=== PATIENT | male | born 1945 | race Asian ===

== ENCOUNTER 2019-03-05 01:32 | Inpatient (IN) | payer MEDICARE ==
[~2019-03-05] VITALS: Ht 162.6 cm; Wt 77.9 kg
[~2019-03-05 01:32] MED LIST: AMLO10TA8 PO; BENA40TA55 PO; EZET10TA18 PO
--- NOTE | 2019-03-05 01:52 | NUR ---
FIRST CONTACT WITH PT. PT HERE FOR ABD PAIN THAT IS CENTRALLY LOCATED. PT DENIES FEVER,NAUSEA AND VOMITING. PAIN STARTED AT 1900 PAIN IS SHARP AND 8/10. PT HAS HX OF BOWEL OBSTRUCTION. BP/SPO2 MONITORS IN PLACE. CALL LIGHT WITHIN REACH. PA AT BEDSIDE TO EVALUATE AT THIS TIME.
[2019-03-05] MEDS ORDERED: ONDANSETRON 2MG/ML, 2ML IVPush ONE (02:00)
[2019-03-05] MEDS ORDERED: SODIUM CHLORIDE FLUSH 10ML SYR IVF ONE (02:00)
[2019-03-05] MEDS ORDERED: ONDANSETRON 2MG/ML, 2ML ONE (02:16)
[2019-03-05] MEDS ORDERED: MORPHINE SULFATE 4 MG/ML, 1ML ONE ×2 (02:16→04:35)
[2019-03-05] MEDS: MORPHINE SULFATE 4 MG/ML, 1ML IVPush PRN ×2 (02:18→04:36)
--- NOTE | 2019-03-05 02:22 | NUR ---
PT MEDICATED PER EMAR. PT TOLERATED WELL.
[2019-03-05 02:23] LABS: BASOPHILS # (AUTO) 0.01 x10^3/uL (0-0.1); BASOPHILS % (AUTO) 0 % (0-1); EOSINOPHILS # (AUTO) 0.37 x10^3/uL (0-0.4); EOSINOPHILS % (AUTO) 2 % (1-7); LYMPHOCYTES # (AUTO) 1.42 x10^3/uL (1-3.4); LYMPHOCYTES % (AUTO) 9 % (22-44); MD NO; MEAN CORPUSCULAR HEMOGLOBIN 30.4 pg (27.5-34.5); MEAN CORPUSCULAR HGB CONC 33.1 g/dL (33.2-36.2); MEAN CORPUSCULAR VOLUME 91.8 fL (81-97); MEAN PLATELET VOLUME 8.2 fL (7.4-10.4); MONOCYTES # (AUTO) 0.59 x10^3/uL (0.2-0.8); MONOCYTES % (AUTO) 4 % (2-9); NEUTROPHILS # (AUTO) 13.93 x10^3/uL (1.8-6.8); NEUTROPHILS % (AUTO) 85 % (42-75); PLATELET COUNT 291 x10^3/uL (130-400); RED BLOOD COUNT 5.35 x10^6/uL (4.38-5.82); RED CELL DISTRIBUTION WIDTH 13.8 % (9.4-14.8)
[2019-03-05 02:32] LABS: ALANINE AMINOTRANSFERASE 55 U/L (12-78); ALBUMIN 4.4 g/dL (3.4-5.0); ANION GAP 9 mmol/L (5-15); CALCIUM 9.7 mg/dL (8.5-10.1); CHLORIDE 104 mmol/L (98-107); CREATININE 1.42 mg/dL (0.7-1.3)
[2019-03-05 02:34] LABS: ALKALINE PHOSPHATASE 86 U/L (45-117); BILIRUBIN,TOTAL 0.5 mg/dL (0.2-1.0); TOTAL PROTEIN 8.4 g/dL (6.4-8.2)
--- NOTE | 2019-03-05 03:04 | NUR ---
PT TO CT NOW.
--- NOTE | 2019-03-05 03:07 | NUR ---
PT'S DAUGHTER NUMBER [phone]
[2019-03-05] MEDS ORDERED: OMNIPAQUE 350 MG/ML, 100ML BOTTLE ONE (03:11)
--- NOTE | 2019-03-05 03:17 | NUR ---
PT IS NOT ABLE TO PROVIDE URINE SAMPLE AT THIS TIME. PA NOTIFIED.
[2019-03-05] MEDS ORDERED: METF500T17 PO (03:50)
[2019-03-05] MEDS ORDERED: IBUP-1222 PO (03:50)
[2019-03-05] MEDS ORDERED: ATOR20TA37 PO (03:51)
[2019-03-05] MEDS ORDERED: ALLO300T PO (03:51)
--- NOTE | 2019-03-05 03:58 | NUR ---
PT IS NOT ABLE TO PROVIDE URINE SAMPLE STILL. URINAL AT BEDSIDE. PA NOTIFIED.
[2019-03-05] MEDS ORDERED: MORPHINE SULFATE 4 MG/ML, 1ML IVPush PRN (04:00)
[2019-03-05] MEDS ORDERED: ONDANSETRON 2MG/ML, 2ML IVPush PRN (04:00)
[2019-03-05] MEDS ORDERED: triamcinolon SUBD (04:17)
[2019-03-05] MEDS ORDERED: DOCUSATE 100 MG CAPSULE PO PRN (04:30)
[2019-03-05] MEDS ORDERED: ONDANSETRON ODT 4 MG PO PRN (04:30)
[2019-03-05] MEDS ORDERED: ACETAMINOPHEN 325 MG TABLET PO PRN (04:30)
--- NOTE | 2019-03-05 04:30 | NUR ---
REPORT GIVEN TO AGUILAR DREW. ALL QUESTIONS ANSWERED.
--- NOTE | 2019-03-05 04:40 | NUR ---
PT MEDICATED PER EMAR FOR PAIN. PT TOLERATED WELL.
[2019-03-05 04:50] VITALS: BP 147/80
[2019-03-05 05:52] LABS: C-REACTIVE PROTEIN, QUANT 0.63 mg/dL (0.02-0.49); FREE T4 (FREE THYROXINE) 1.26 ng/dL (0.76-1.46)
[2019-03-05 06:06] LABS: HCT (SEDRATE) 49.1 % (39.2-51.8)
[2019-03-05 06:23] VITALS: BP 123/72
[2019-03-05] MEDS: ERTAPENEM 1 GM in SODIUM CHLORIDE 0.9% 50 ML IV SCH (06:34)
[2019-03-05] MEDS: SODIUM CHLORIDE 0.9% 1,000 ML IV SCH ×3 (06:34→23:17)
[2019-03-05] MEDS: METRONIDAZOLE PMX 500MG/100ML 100 ML IV SCH ×3 (07:36→23:16)
[2019-03-05] MEDS: TRIAMCINOLON SUBD SCH ×2 (07:36→21:00)
[2019-03-05] MEDS: morphine SULFATE 10 MG/ML, 1ML IVPush PRN ×4 (07:37→14:52)
[2019-03-05] MEDS: HEPARIN 5,000 UNITS/ML, 1ML SQ SCH ×3 (07:37→23:16)
[2019-03-05] MEDS: INSULIN LISPRO 100 UNITS/ML, PEN SQ-INSULIN SCH ×4 (07:40→21:00)
[2019-03-05] MEDS: ONDANSETRON 2MG/ML, 2ML IVPush PRN (07:50)
[2019-03-05] MEDS ORDERED: BENAZEPRIL 20 MG TABLET PO SCH (09:00)
[2019-03-05] MEDS ORDERED: AMLODIPINE 5 MG TABLET PO SCH (09:00)
[2019-03-05] MEDS ORDERED: ALLOPURINOL 300 MG TABLET PO SCH (09:00)
[2019-03-05 10:31] LABS: MICROSCOPIC NOT IND
[2019-03-05] MEDS: HYDROcodone/APAP 5/325 TABLET PO PRN ×2 (10:32→21:33)
[2019-03-05 10:33] LABS: CULTURE INDICATED? NO
[2019-03-05] MEDS ORDERED: ENALAPRILAT 1.25 MG/ML, 2ML IV PRN (11:30)
[2019-03-05 12:25] VITALS: BP 122/71
[2019-03-05 17:30] LABS: HEMOGLOBIN A1C 6.7 % (4.2-6.3)
[2019-03-05 19:04] VITALS: BP 131/77
[2019-03-05] MEDS ORDERED: ATORVASTATIN 20 MG TABLET PO SCH (21:00)
[2019-03-06 01:13] VITALS: BP 150/80
[2019-03-06] MEDS ORDERED: MORPHINE SULFATE 4 MG/ML, 1ML ONE (01:24)
[2019-03-06] MEDS: morphine SULFATE 10 MG/ML, 1ML IVPush PRN ×2 (01:26→07:49)
[2019-03-06] MEDS: ONDANSETRON 2MG/ML, 2ML IVPush PRN (02:47)
[2019-03-06] MEDS: HYDROcodone/APAP 5/325 TABLET PO PRN (03:49)
[2019-03-06 04:27] LABS: BASOPHILS # (AUTO) 0.03 x10^3/uL (0-0.1); BASOPHILS % (AUTO) 0 % (0-1); EOSINOPHILS % (AUTO) 2 % (1-7); LYMPHOCYTES # (AUTO) 1.11 x10^3/uL (1-3.4); LYMPHOCYTES % (AUTO) 10 % (22-44); MD NO; MEAN CORPUSCULAR HEMOGLOBIN 30.4 pg (27.5-34.5); MEAN CORPUSCULAR HGB CONC 32.9 g/dL (33.2-36.2); MEAN CORPUSCULAR VOLUME 92.4 fL (81-97); MEAN PLATELET VOLUME 8.6 fL (7.4-10.4); MONOCYTES # (AUTO) 1.02 x10^3/uL (0.2-0.8); MONOCYTES % (AUTO) 9 % (2-9); NEUTROPHILS # (AUTO) 8.87 x10^3/uL (1.8-6.8); NEUTROPHILS % (AUTO) 79 % (42-75); PLATELET COUNT 234 x10^3/uL (130-400); RED BLOOD COUNT 4.41 x10^6/uL (4.38-5.82)
[2019-03-06 04:32] LABS: ALANINE AMINOTRANSFERASE 80 U/L (12-78); ALBUMIN 3.2 g/dL (3.4-5.0); ANION GAP 7 mmol/L (5-15); CALCIUM 8.1 mg/dL (8.5-10.1); CHLORIDE 111 mmol/L (98-107); CHOLESTEROL, TOTAL 98 mg/dL (140-239)
[2019-03-06 04:34] LABS: ALKALINE PHOSPHATASE 84 U/L (45-117); BILIRUBIN,TOTAL 0.7 mg/dL (0.2-1.0); CHOL/HDL RATIO 2.7; HDL CHOL % 37 % (26-37); HDL CHOLESTEROL (DIRECT) 36 mg/dL (40-60); LDL CHOLESTEROL,CALCULATED 42 mg/dL (54-169); LDL/HDL RATIO 1.2 (0.5-3.0); TOTAL PROTEIN 6.3 g/dL (6.4-8.2); TRIGLYCERIDES 102 mg/dL (50-200); VLDL CHOLESTEROL 20 mg/dL (0-25)
[2019-03-06] MEDS: ERTAPENEM 1 GM in SODIUM CHLORIDE 0.9% 50 ML IV SCH (06:29)
[2019-03-06] MEDS: INSULIN LISPRO 100 UNITS/ML, PEN SQ-INSULIN SCH ×4 (07:26→20:15)
[2019-03-06] MEDS: HEPARIN 5,000 UNITS/ML, 1ML SQ SCH ×2 (07:49→15:56)
[2019-03-06] MEDS: METRONIDAZOLE PMX 500MG/100ML 100 ML IV SCH ×2 (07:49→15:56)
[2019-03-06] MEDS: TRIAMCINOLON SUBD SCH ×2 (07:55→20:17)
[2019-03-06] MEDS: PROMETHAZINE 25 MG/ML, 1ML IM PRN ×3 (07:59→22:52)
[2019-03-06 08:20] VITALS: BP 127/60
[2019-03-06] MEDS ORDERED: ALLOPURINOL 100 MG TABLET PO SCH (09:00)
[2019-03-06] MEDS: D5%-0.45% NACL 1,000 ML IV SCH ×2 (11:26→20:16)
[2019-03-06] MEDS: KETOROLAC 30 MG/1 ML IVPush PRN ×2 (11:36→18:25)
[2019-03-06 13:05] VITALS: BP 153/87
[2019-03-06 19:44] VITALS: BP 143/73
[2019-03-07] MEDS: METRONIDAZOLE PMX 500MG/100ML 100 ML IV SCH ×4 (00:05→23:20)
[2019-03-07] MEDS: HEPARIN 5,000 UNITS/ML, 1ML SQ SCH ×4 (00:06→23:20)
[2019-03-07] MEDS: KETOROLAC 30 MG/1 ML IVPush PRN ×2 (00:10→19:44)
[2019-03-07 01:39] VITALS: BP 167/84
[2019-03-07] MEDS: PROMETHAZINE 25 MG/ML, 1ML IM PRN ×2 (01:57→19:45)
[2019-03-07] MEDS: D5%-0.45% NACL 1,000 ML IV SCH ×3 (04:25→23:28)
[2019-03-07] MEDS: ONDANSETRON 2MG/ML, 2ML IVPush PRN ×2 (04:27→23:23)
[2019-03-07] MEDS: morphine SULFATE 10 MG/ML, 1ML IVPush PRN ×2 (04:32→23:20)
[2019-03-07 05:41] LABS: BASOPHILS # (AUTO) 0.04 x10^3/uL (0-0.1); BASOPHILS % (AUTO) 0 % (0-1); EOSINOPHILS % (AUTO) 2 % (1-7); LYMPHOCYTES # (AUTO) 1.18 x10^3/uL (1-3.4); LYMPHOCYTES % (AUTO) 12 % (22-44); MD NO; MEAN CORPUSCULAR HEMOGLOBIN 30.5 pg (27.5-34.5); MEAN CORPUSCULAR HGB CONC 32.8 g/dL (33.2-36.2); MEAN CORPUSCULAR VOLUME 93.1 fL (81-97); MEAN PLATELET VOLUME 8.5 fL (7.4-10.4); MONOCYTES # (AUTO) 0.85 x10^3/uL (0.2-0.8); MONOCYTES % (AUTO) 9 % (2-9); NEUTROPHILS # (AUTO) 7.65 x10^3/uL (1.8-6.8); NEUTROPHILS % (AUTO) 77 % (42-75); PLATELET COUNT 214 x10^3/uL (130-400); RED BLOOD COUNT 4.12 x10^6/uL (4.38-5.82); RED CELL DISTRIBUTION WIDTH 14.1 % (9.4-14.8)
[2019-03-07 05:56] LABS: ANION GAP 4 mmol/L (5-15); CALCIUM 8.2 mg/dL (8.5-10.1); CHLORIDE 110 mmol/L (98-107)
[2019-03-07 06:01] LABS: ALANINE AMINOTRANSFERASE 79 U/L (12-78); ALKALINE PHOSPHATASE 80 U/L (45-117); BILIRUBIN,TOTAL 0.8 mg/dL (0.2-1.0); CREATININE 1.12 mg/dL (0.7-1.3); TOTAL PROTEIN 6.1 g/dL (6.4-8.2)
[2019-03-07] MEDS: ERTAPENEM 1 GM in SODIUM CHLORIDE 0.9% 50 ML IV SCH (06:25)
[2019-03-07 07:03] VITALS: BP 137/81
[2019-03-07] MEDS: INSULIN LISPRO 100 UNITS/ML, PEN SQ-INSULIN SCH ×4 (07:52→19:43)
[2019-03-07] MEDS: TRIAMCINOLON SUBD SCH ×2 (07:52→21:00)
[2019-03-07 13:09] VITALS: BP 116/69
[2019-03-07 20:09] VITALS: BP 151/83
[2019-03-08 00:35] VITALS: BP 153/85
[2019-03-08] MEDS: ERTAPENEM 1 GM in SODIUM CHLORIDE 0.9% 50 ML IV SCH (05:24)
[2019-03-08 06:17] LABS: BASOPHILS # (AUTO) 0.06 x10^3/uL (0-0.1); BASOPHILS % (AUTO) 1 % (0-1); EOSINOPHILS # (AUTO) 0.34 x10^3/uL (0-0.4); EOSINOPHILS % (AUTO) 3 % (1-7); LYMPHOCYTES # (AUTO) 1.32 x10^3/uL (1-3.4); LYMPHOCYTES % (AUTO) 11 % (22-44); MD NO; MEAN CORPUSCULAR HEMOGLOBIN 30.4 pg (27.5-34.5); MEAN CORPUSCULAR HGB CONC 32.4 g/dL (33.2-36.2); MEAN CORPUSCULAR VOLUME 93.9 fL (81-97); MEAN PLATELET VOLUME 8.7 fL (7.4-10.4); MONOCYTES # (AUTO) 1.17 x10^3/uL (0.2-0.8); MONOCYTES % (AUTO) 10 % (2-9); NEUTROPHILS % (AUTO) 76 % (42-75); PLATELET COUNT 213 x10^3/uL (130-400); RED BLOOD COUNT 4.12 x10^6/uL (4.38-5.82); RED CELL DISTRIBUTION WIDTH 14.1 % (9.4-14.8)
[2019-03-08 06:23] LABS: ALANINE AMINOTRANSFERASE 80 U/L (12-78); ALBUMIN 2.9 g/dL (3.4-5.0); ANION GAP 3 mmol/L (5-15); CALCIUM 8.2 mg/dL (8.5-10.1); CHLORIDE 108 mmol/L (98-107); CREATININE 1.02 mg/dL (0.7-1.3)
[2019-03-08 06:26] LABS: ALKALINE PHOSPHATASE 87 U/L (45-117); BILIRUBIN,TOTAL 0.3 mg/dL (0.2-1.0)
[2019-03-08 06:44] VITALS: BP 153/77
[2019-03-08] MEDS: HEPARIN 5,000 UNITS/ML, 1ML SQ SCH (08:00)
[2019-03-08] MEDS: TRIAMCINOLON SUBD SCH ×2 (08:03→21:00)
[2019-03-08] MEDS: INSULIN LISPRO 100 UNITS/ML, PEN SQ-INSULIN SCH ×4 (08:17→20:06)
[2019-03-08] MEDS: PROMETHAZINE 25 MG/ML, 1ML IM PRN ×2 (08:48→16:01)
[2019-03-08] MEDS: morphine SULFATE 10 MG/ML, 1ML IVPush PRN ×2 (08:48→16:01)
[2019-03-08] MEDS: PANTOPRAZOLE 40 MG IV IVPush SCH ×2 (10:51→20:03)
[2019-03-08] MEDS: D5%-0.45% NACL 1,000 ML IV SCH ×2 (10:52→16:49)
[2019-03-08 12:21] LABS: GASTRIC OCCULT BLD POSITIVE (NEGATIVE); GASTRIC PH 1 (1-7)
[2019-03-08 15:56] VITALS: BP 150/76
[2019-03-08 18:59] VITALS: BP 142/72
[2019-03-09] MEDS: D5%-0.45% NACL 1,000 ML IV SCH ×3 (00:52→16:42)
[2019-03-09 02:59] VITALS: BP 146/76
[2019-03-09 04:09] LABS: BASOPHILS # (AUTO) 0.05 x10^3/uL (0-0.1); BASOPHILS % (AUTO) 0 % (0-1); EOSINOPHILS # (AUTO) 0.43 x10^3/uL (0-0.4); EOSINOPHILS % (AUTO) 4 % (1-7); LYMPHOCYTES # (AUTO) 1.38 x10^3/uL (1-3.4); LYMPHOCYTES % (AUTO) 13 % (22-44); MD NO; MEAN CORPUSCULAR HEMOGLOBIN 30.5 pg (27.5-34.5); MEAN CORPUSCULAR HGB CONC 32.5 g/dL (33.2-36.2); MEAN CORPUSCULAR VOLUME 93.8 fL (81-97); MEAN PLATELET VOLUME 8.7 fL (7.4-10.4); MONOCYTES % (AUTO) 10 % (2-9); NEUTROPHILS # (AUTO) 8.07 x10^3/uL (1.8-6.8); NEUTROPHILS % (AUTO) 73 % (42-75); PLATELET COUNT 208 x10^3/uL (130-400); RED BLOOD COUNT 3.96 x10^6/uL (4.38-5.82); RED CELL DISTRIBUTION WIDTH 13.9 % (9.4-14.8)
[2019-03-09 04:22] LABS: ALBUMIN 2.8 g/dL (3.4-5.0); ANION GAP 3 mmol/L (5-15); CHLORIDE 105 mmol/L (98-107); CREATININE 0.97 mg/dL (0.7-1.3)
[2019-03-09] MEDS: ERTAPENEM 1 GM in SODIUM CHLORIDE 0.9% 50 ML IV SCH (05:29)
[2019-03-09 06:56] VITALS: BP 147/68
[2019-03-09] MEDS ORDERED: POTASSIUM CHLORIDE 20 MEQ TAB.ER.PRT PO ONE ×2 (08:00→11:00)
[2019-03-09] MEDS: TRIAMCINOLON SUBD SCH ×2 (08:01→19:46)
[2019-03-09] MEDS: PANTOPRAZOLE 40 MG IV IVPush SCH ×2 (09:02→19:59)
[2019-03-09] MEDS: INSULIN LISPRO 100 UNITS/ML, PEN SQ-INSULIN SCH ×4 (09:09→19:46)
[2019-03-09] MEDS ORDERED: POTASSIUM CHLORIDE 40 MEQ in SODIUM CHLORIDE 0.9% 500 ML IV ONE (10:30)
[2019-03-09 12:56] VITALS: BP 150/80
[2019-03-09 19:58] VITALS: BP 151/79
[2019-03-10] MEDS: D5%-0.45% NACL 1,000 ML IV SCH ×2 (00:22→08:46)
[2019-03-10 01:04] VITALS: BP 144/72
[2019-03-10 04:38] LABS: BASOPHILS % (AUTO) 1 % (0-1); EOSINOPHILS % (AUTO) 5 % (1-7); LYMPHOCYTES % (AUTO) 16 % (22-44); MD NO; MEAN CORPUSCULAR HEMOGLOBIN 29.6 pg (27.5-34.5); MEAN CORPUSCULAR HGB CONC 32.2 g/dL (33.2-36.2); MEAN CORPUSCULAR VOLUME 91.9 fL (81-97); MEAN PLATELET VOLUME 8.4 fL (7.4-10.4); MONOCYTES # (AUTO) 0.96 x10^3/uL (0.2-0.8); MONOCYTES % (AUTO) 10 % (2-9); NEUTROPHILS % (AUTO) 68 % (42-75); PLATELET COUNT 208 x10^3/uL (130-400); RED BLOOD COUNT 3.96 x10^6/uL (4.38-5.82); RED CELL DISTRIBUTION WIDTH 13.8 % (9.4-14.8)
[2019-03-10] MEDS: ERTAPENEM 1 GM in SODIUM CHLORIDE 0.9% 50 ML IV SCH (04:40)
[2019-03-10 04:48] LABS: ALBUMIN 2.6 g/dL (3.4-5.0); ANION GAP 5 mmol/L (5-15); CALCIUM 7.9 mg/dL (8.5-10.1); CHLORIDE 109 mmol/L (98-107)
[2019-03-10 04:53] LABS: ALANINE AMINOTRANSFERASE 65 U/L (12-78); ALKALINE PHOSPHATASE 72 U/L (45-117); BILIRUBIN,TOTAL 0.5 mg/dL (0.2-1.0); CREATININE 0.86 mg/dL (0.7-1.3); TOTAL PROTEIN 5.5 g/dL (6.4-8.2)
[2019-03-10 06:50] VITALS: BP 145/82
[2019-03-10] MEDS: INSULIN LISPRO 100 UNITS/ML, PEN SQ-INSULIN SCH ×4 (07:00→19:46)
[2019-03-10] MEDS: TRIAMCINOLON SUBD SCH ×2 (07:20→19:46)
[2019-03-10] MEDS: PANTOPRAZOLE 40 MG IV IVPush SCH (08:47)
[2019-03-10] MEDS ORDERED: POTASSIUM CHLORIDE 40 MEQ in SODIUM CHLORIDE 0.9% 500 ML IV ONE (09:30)
[2019-03-10] MEDS: SODIUM CHLORIDE 0.45% 1,000 ML IV SCH ×2 (09:30→22:37)
[2019-03-10 13:38] VITALS: BP 176/82
[2019-03-10] MEDS: PANTOPROZOLE 40MG TABLET PO SCH (16:28)
[2019-03-10 17:41] VITALS: BP 166/91
[2019-03-10 19:22] VITALS: BP 168/91
[2019-03-11] VITALS (8 sets, daily range): BP systolic 154–184; BP diastolic 77–94
[2019-03-11 04:37] LABS: BASOPHILS # (AUTO) 0.05 x10^3/uL (0-0.1); BASOPHILS % (AUTO) 1 % (0-1); EOSINOPHILS # (AUTO) 0.56 x10^3/uL (0-0.4); EOSINOPHILS % (AUTO) 5 % (1-7); LYMPHOCYTES # (AUTO) 1.61 x10^3/uL (1-3.4); LYMPHOCYTES % (AUTO) 15 % (22-44); MD NO; MEAN CORPUSCULAR HEMOGLOBIN 30.5 pg (27.5-34.5); MEAN CORPUSCULAR HGB CONC 32.7 g/dL (33.2-36.2); MEAN CORPUSCULAR VOLUME 93.2 fL (81-97); MEAN PLATELET VOLUME 8.9 fL (7.4-10.4); MONOCYTES # (AUTO) 1.07 x10^3/uL (0.2-0.8); MONOCYTES % (AUTO) 10 % (2-9); NEUTROPHILS # (AUTO) 7.61 x10^3/uL (1.8-6.8); NEUTROPHILS % (AUTO) 70 % (42-75); PLATELET COUNT 243 x10^3/uL (130-400); RED BLOOD COUNT 4.01 x10^6/uL (4.38-5.82); RED CELL DISTRIBUTION WIDTH 13.9 % (9.4-14.8)
[2019-03-11 04:45] LABS: ALBUMIN 2.7 g/dL (3.4-5.0); ANION GAP 10 mmol/L (5-15); CALCIUM 8.2 mg/dL (8.5-10.1); CHLORIDE 108 mmol/L (98-107)
[2019-03-11 04:50] LABS: ALANINE AMINOTRANSFERASE 55 U/L (12-78); ALKALINE PHOSPHATASE 71 U/L (45-117); BILIRUBIN,TOTAL 0.6 mg/dL (0.2-1.0); CREATININE 0.84 mg/dL (0.7-1.3); TOTAL PROTEIN 5.8 g/dL (6.4-8.2)
[2019-03-11] MEDS: PANTOPROZOLE 40MG TABLET PO SCH ×2 (05:11→16:29)
[2019-03-11] MEDS: ERTAPENEM 1 GM in SODIUM CHLORIDE 0.9% 50 ML IV SCH (05:11)
[2019-03-11] MEDS: SODIUM CHLORIDE 0.45% 1,000 ML IV SCH (06:24)
[2019-03-11] MEDS: INSULIN LISPRO 100 UNITS/ML, PEN SQ-INSULIN SCH ×4 (07:00→19:32)
[2019-03-11] MEDS: TRIAMCINOLON SUBD SCH ×2 (07:21→19:38)
[2019-03-11] MEDS: hydrALAzine 20 MG/ML, 1ML IVPush PRN ×2 (07:22→21:11)
[2019-03-11] MEDS ORDERED: AMLODIPINE 5 MG TABLET PO SCH (10:30)
[2019-03-11] MEDS: BENAZEPRIL 20 MG TABLET PO SCH (10:30)
[2019-03-11] MEDS: metFORMIN 500 MG TABLET PO SCH (16:30)
[2019-03-11] MEDS ORDERED: ATORVASTATIN 20 MG TABLET PO SCH (21:00)
[2019-03-11] MEDS: TRIAMTERENE-HCTZ 37.5/25 MG TABLET PO SCH (22:17)
[2019-03-12] MEDS ORDERED: hydrALAzine 20 MG/ML, 1ML IVPush PRN (00:30)
[2019-03-12] MEDS: PROMETHAZINE 25 MG/ML, 1ML IM PRN (01:18)
[2019-03-12 01:20] VITALS: BP 155/74
[2019-03-12 04:49] LABS: BASOPHILS # (AUTO) 0.03 x10^3/uL (0-0.1); BASOPHILS % (AUTO) 0 % (0-1); EOSINOPHILS # (AUTO) 0.21 x10^3/uL (0-0.4); EOSINOPHILS % (AUTO) 2 % (1-7); LYMPHOCYTES # (AUTO) 1.12 x10^3/uL (1-3.4); LYMPHOCYTES % (AUTO) 9 % (22-44); MD NO; MEAN CORPUSCULAR HEMOGLOBIN 29.7 pg (27.5-34.5); MEAN CORPUSCULAR HGB CONC 32.4 g/dL (33.2-36.2); MEAN CORPUSCULAR VOLUME 91.6 fL (81-97); MEAN PLATELET VOLUME 8.4 fL (7.4-10.4); MONOCYTES # (AUTO) 0.97 x10^3/uL (0.2-0.8); MONOCYTES % (AUTO) 8 % (2-9); NEUTROPHILS # (AUTO) 10.41 x10^3/uL (1.8-6.8); NEUTROPHILS % (AUTO) 82 % (42-75); PLATELET COUNT 278 x10^3/uL (130-400); RED BLOOD COUNT 4.23 x10^6/uL (4.38-5.82); RED CELL DISTRIBUTION WIDTH 13.8 % (9.4-14.8)
[2019-03-12 05:02] LABS: CHLORIDE 106 mmol/L (98-107)
[2019-03-12 05:10] LABS: ALANINE AMINOTRANSFERASE 49 U/L (12-78); ALKALINE PHOSPHATASE 74 U/L (45-117); ANION GAP 9 mmol/L (5-15); BILIRUBIN,TOTAL 0.7 mg/dL (0.2-1.0); CALCIUM 8.5 mg/dL (8.5-10.1); CREATININE 0.85 mg/dL (0.7-1.3); TOTAL PROTEIN 6.3 g/dL (6.4-8.2)
[2019-03-12] MEDS: PANTOPROZOLE 40MG TABLET PO SCH (05:47)
[2019-03-12 05:52] VITALS: BP 155/78
[2019-03-12] MEDS: INSULIN LISPRO 100 UNITS/ML, PEN SQ-INSULIN SCH ×2 (07:00→10:37)
[2019-03-12 07:18] VITALS: BP 148/74
[2019-03-12] MEDS ORDERED: POTASSIUM CHLORIDE 40 MEQ in SODIUM CHLORIDE 0.9% 500 ML IV ONE (08:00)
[2019-03-12] MEDS: TRIAMTERENE-HCTZ 37.5/25 MG TABLET PO SCH (08:10)
[2019-03-12] MEDS: BENAZEPRIL 20 MG TABLET PO SCH (08:11)
[2019-03-12] MEDS: metFORMIN 500 MG TABLET PO SCH (08:11)
[2019-03-12] MEDS: TRIAMCINOLON SUBD SCH (08:15)
[2019-03-12] MEDS ORDERED: AMLODIPINE 10 MG TAB PO SCH (09:00)
[2019-03-12] MEDS ORDERED: TRIAMTERENE-HCTZ 37.5/25 MG TABLET PO SCH (09:00)
[2019-03-12] MEDS ORDERED: ALLOPURINOL 300 MG TABLET PO SCH (09:00)
[2019-03-12] MEDS ORDERED: PANT40TA5 PO (10:36)
[2019-03-12 13:45] VITALS: BP 143/76
== END 2019-03-12 14:45 | disposition home or self-care (01) | DRG 871 ==
LOC: ED 02:00 → EDIP 03:54 → 3NW 04:42 → DCLOUNGE 03-12 14:32
PROVIDERS: ADMIT Internal Medicine; ATTEND Internal Medicine
DX: A41.9 Sepsis, unspecified organism (principal); N17.0 Acute kidney failure with tubular necrosis; A09 Infectious gastroenteritis and colitis, unspecified; K56.7 Ileus, unspecified; R18.8 Other ascites; Z91.048 Other nonmedicinal substance allergy status; D72.829 Elevated white blood cell count, unspecified; E11.9 Type 2 diabetes mellitus without complications; E78.5 Hyperlipidemia, unspecified; I10 Essential (primary) hypertension; M1A.9XX0 Chronic gout, unspecified, without tophus (tophi); R63.3 Feeding difficulties; Z87.442 Personal history of urinary calculi; Z90.49 Acquired absence of other specified parts of digestive tract
CPT/HCPCS: 36415; 74018; 74177; 80048; 80053; 80061; 81003; 82040; 82271; 82962; 83036; 83690; 83735; 84100; 84439; 85014; 85018; 85025; 85651; 86140; 93005; 96374; G0378; J1335; J1644; J1885; J2405; J2550; J3480; Q9967; C9113; J0360; J1815; J2270; J7030; J7040

== ENCOUNTER 2021-05-24 06:29 | Inpatient (IN) | payer MEDICARE ==
[~2021-05-24] VITALS: Ht 162.6 cm; Wt 71.7 kg
[~2021-05-24 06:29] MED LIST changes: +ALLO300T PO; +AMLO-211 PO; -AMLO10TA8 PO; +ATOR20TA37 PO; -EZET10TA18 PO; +EZET10TA70 PO; +IBUP-1222 PO; +METF500T17 PO; +PANT40TA6 PO; +triamcinolon SUBD
--- NOTE | 2021-05-24 06:58 | NUR ---
REPORT TO RAJENDRA PALM.
--- NOTE | 2021-05-24 07:27 | NUR ---
PATIENT RESTING IN [facility], CONNECTED TO MONITOR, VSS, CALL LIGHT WITHIN REACH. COVID SWAB COLLECTED AND WALKED TO LAB.
--- NOTE | 2021-05-24 07:48 | NUR ---
PER PATIENT'S DAUGHTER, PATIENT HAD COUGH X1 WEEK SEEN AT [facility] 05/22 PRESCRIBED AZITHROMYCIN, SYMPTOMS HAVE NOT IMPROVED.
[2021-05-24] MEDS ORDERED: TRIA1TAB3 PO (07:52)
--- NOTE | 2021-05-24 07:55 | NUR ---
DAUGHTER MARI CURRIE PHONE NUMBER [phone]. SON LUZ ELENA HINDS PHONE NUMBER [phone].
[2021-05-24 08:18] LABS: ALANINE AMINOTRANSFERASE 41 U/L (12-78); ALBUMIN 3.2 g/dL (3.4-5.0); ANION GAP 8 mmol/L (5-15); CALCIUM 9.1 mg/dL (8.5-10.1); CHLORIDE 105 mmol/L (98-107); CREATININE 1.44 mg/dL (0.7-1.3)
[2021-05-24 08:21] LABS: ALKALINE PHOSPHATASE 82 U/L (45-117); BILIRUBIN,TOTAL 0.6 mg/dL (0.2-1.0); TOTAL PROTEIN 7.9 g/dL (6.4-8.2)
[2021-05-24] MEDS ORDERED: DEXAMETHASONE 4 MG/ML, 1ML ONE (08:28)
[2021-05-24 08:34] LABS: BASOPHILS % (AUTO) 1 % (0-1); EOSINOPHILS % (AUTO) 0 % (1-7); LYMPHOCYTES % (AUTO) 7 % (22-44); MEAN CORPUSCULAR HEMOGLOBIN 29.4 pg (27.5-34.5); MONOCYTES % (AUTO) 10 % (2-9); NEUTROPHILS % (AUTO) 82 % (42-75); PLATELET COUNT 262 x10^3/uL (130-400); RED BLOOD COUNT 4.71 x10^6/uL (4.38-5.82); RED CELL DISTRIBUTION WIDTH 13.7 % (9.4-14.8)
--- NOTE | 2021-05-24 08:41 | NUR ---
LATE ENTRY DUE TO PATIENT CARE: TREVERTENT AMBULATED IN ROOM WITHOUT O2 PER ERMD REQUEST. PATIENT'S O2 DOWN TO 86%-87% RA, PLACED BACK ON 2 LPM NC AND O2 UP TO 95%-96%. ERMD NOTIFIED.
[2021-05-24] MEDS ORDERED: DEXAMETHASONE 4 MG/ML, 1ML IVPush ONE (09:00)
[2021-05-24] MEDS ORDERED: LOSA100T14 PO (09:18)
[2021-05-24] MEDS ORDERED: AMLO-211 PO (09:18)
[2021-05-24] MEDS ORDERED: DOXYCYCLINE 100 MG in DEXTROSE 5% 250 ML IV SCH (09:30)
[2021-05-24] MEDS ORDERED: METHOCARBAMOL 500 MG TABLET PO PRN (10:00)
[2021-05-24] MEDS ORDERED: OXYcodone IR 5MG TABLET PO PRN (10:00)
[2021-05-24] MEDS ORDERED: morphine SULFATE 10 MG/ML, 1ML IVPush PRN (10:00)
[2021-05-24] MEDS ORDERED: LORazepam 2 MG/ML, 1ML IVPush PRN (10:00)
[2021-05-24] MEDS ORDERED: ONDANSETRON 2MG/ML, 2ML IVPush PRN (10:00)
[2021-05-24] MEDS ORDERED: PHARMACY MAY ADJ FOR RENAL FX MC PRN (10:00)
[2021-05-24] MEDS ORDERED: ENALAPRILAT 1.25 MG/ML, 2ML IVPush PRN (10:00)
[2021-05-24] MEDS ORDERED: DEXAMETHASONE 1 MG TABLET PO SCH (10:00)
[2021-05-24] MEDS ORDERED: ACETAMINOPHEN 325 MG TABLET PO PRN (10:00)
--- NOTE | 2021-05-24 10:14 | NUR ---
MEDICATIONS REQUESTED FROM PHARMACY.
--- NOTE | 2021-05-24 10:16 | NUR ---
ATTEMPTED TO CALL REPORT.
--- NOTE | 2021-05-24 10:23 | NUR ---
REPORT TO RAJENDRA ZAMUDIO FOR TRANSFER OF PATIENT CARE.
--- NOTE | 2021-05-24 11:22 | NUR ---
PATIENT RESTING IN [facility], CONNECTED TO MONITOR, VSS, CALL LIGHT WITHIN REACH. WAITING FOR TRANSPORT UPSTAIRS.
--- NOTE | 2021-05-24 11:52 | NUR ---
PATIENT TRANSFERRED TO MEDICAL IN STABLE CONDITION VIA GURNEY WITH RN AND DIRECTOR PROJECT MANAGEMENT. ALL PATIENT BELONGINGS TAKEN TO FLOOR WITH PATIENT.
[2021-05-24] MEDS: LOSARTAN 100 MG TAB PO SCH (11:56)
[2021-05-24] MEDS: TRIAMTERENE-HCTZ 37.5/25 MG TABLET PO SCH (11:56)
[2021-05-24 12:01] VITALS: BP 167/82
[2021-05-24] MEDS: DOXYCYCLINE 100 MG in DEXTROSE 5% 250 ML IV SCH ×2 (12:59→21:03)
[2021-05-24] MEDS: DEXAMETHASONE 4 MG TABLET PO SCH ×2 (13:00→21:02)
[2021-05-24] MEDS: SODIUM CHLORIDE 0.9% 1,000 ML IV SCH (13:16)
[2021-05-24] MEDS: HEPARIN 5,000 UNITS/ML, 1ML SQ SCH ×2 (13:17→21:01)
[2021-05-24] MEDS: BENZONATATE 100 MG CAPSULE PO SCH ×3 (13:17→21:02)
[2021-05-24] MEDS: AMLODIPINE 10 MG TAB PO SCH (13:17)
[2021-05-24] MEDS: ASCORBIC ACID 500 MG TABLET PO SCH ×2 (13:17→21:02)
[2021-05-24] MEDS: ZINC SULFATE 220 MG CAPSULE PO SCH (13:18)
[2021-05-24 15:00] VITALS: BP 138/72
[2021-05-24] MEDS ORDERED: REMDESIVIR 200 MG in SODIUM CHLORIDE 0.9% 250 ML IVPB ONE (15:00)
[2021-05-24 15:20] VITALS: BP 136/75
[2021-05-24 15:50] VITALS: BP 135/79
[2021-05-24] MEDS: INSULIN REGULAR 100 UNITS/ML, 3ML VIAL SQ-INSULIN SCH ×2 (16:21→21:00)
[2021-05-24 19:40] VITALS: BP 124/62
[2021-05-24] MEDS: ATORVASTATIN 20 MG TABLET PO SCH (21:02)
[2021-05-25 00:43] VITALS: BP 127/72
[2021-05-25] MEDS: HEPARIN 5,000 UNITS/ML, 1ML SQ SCH ×3 (05:02→22:26)
[2021-05-25] MEDS: SODIUM CHLORIDE 0.9% 1,000 ML IV SCH ×2 (05:03→19:59)
[2021-05-25 05:22] LABS: CHLORIDE 108 mmol/L (98-107)
[2021-05-25 05:31] LABS: ALANINE AMINOTRANSFERASE 37 U/L (12-78); ALBUMIN 2.6 g/dL (3.4-5.0); ALKALINE PHOSPHATASE 73 U/L (45-117); ANION GAP 7 mmol/L (5-15); BILIRUBIN,TOTAL 0.4 mg/dL (0.2-1.0); CALCIUM 8.2 mg/dL (8.5-10.1); CREATININE 1.24 mg/dL (0.7-1.3); TOTAL PROTEIN 7.1 g/dL (6.4-8.2)
[2021-05-25 05:35] LABS: BASOPHILS % (AUTO) 0 % (0-1); EOSINOPHILS % (AUTO) 0 % (1-7); LYMPHOCYTES % (AUTO) 9 % (22-44); MEAN CORPUSCULAR HEMOGLOBIN 29.1 pg (27.5-34.5); MEAN CORPUSCULAR HGB CONC 32.7 g/dL (33.2-36.2); MEAN PLATELET VOLUME 8.1 fL (7.4-10.4); MONOCYTES % (AUTO) 5 % (2-9); NEUTROPHILS % (AUTO) 86 % (42-75); PLATELET COUNT 293 x10^3/uL (130-400); RED BLOOD COUNT 4.51 x10^6/uL (4.38-5.82); RED CELL DISTRIBUTION WIDTH 13.8 % (9.4-14.8)
[2021-05-25] MEDS: ASCORBIC ACID 500 MG TABLET PO SCH ×2 (08:07→22:26)
[2021-05-25] MEDS: ZINC SULFATE 220 MG CAPSULE PO SCH (08:07)
[2021-05-25] MEDS: AMLODIPINE 10 MG TAB PO SCH (08:07)
[2021-05-25] MEDS: INSULIN REGULAR 100 UNITS/ML, 3ML VIAL SQ-INSULIN SCH ×4 (08:07→22:26)
[2021-05-25] MEDS: TRIAMTERENE-HCTZ 37.5/25 MG TABLET PO SCH (08:07)
[2021-05-25] MEDS: LOSARTAN 100 MG TAB PO SCH (08:07)
[2021-05-25] MEDS: BENZONATATE 100 MG CAPSULE PO SCH ×3 (08:07→22:26)
[2021-05-25 08:08] VITALS: BP 131/69
[2021-05-25] MEDS: DEXAMETHASONE 4 MG TABLET PO SCH ×2 (08:08→16:07)
[2021-05-25] MEDS: DOXYCYCLINE 100 MG in DEXTROSE 5% 250 ML IV SCH ×2 (09:00→22:25)
[2021-05-25] MEDS: GUAIFENESIN/COD200MG-20MG/10ML LIQUID PO PRN ×2 (09:17→22:25)
[2021-05-25 13:46] VITALS: BP 128/64
[2021-05-25] MEDS: REMDESIVIR 100 MG in SODIUM CHLORIDE 0.9% 250 ML IVPB SCH (16:06)
[2021-05-25 20:00] VITALS: BP 114/67
[2021-05-25] MEDS: ATORVASTATIN 20 MG TABLET PO SCH (22:25)
[2021-05-26] MEDS ORDERED: CALCIUM CARBONATE 500 MG TAB.CHEW PO PRN (00:30)
[2021-05-26 00:47] VITALS: BP 134/65
[2021-05-26] MEDS: HEPARIN 5,000 UNITS/ML, 1ML SQ SCH ×3 (06:33→20:53)
[2021-05-26 06:42] LABS: BASOPHILS % (AUTO) 0 % (0-1); EOSINOPHILS % (AUTO) 0 % (1-7); LYMPHOCYTES % (AUTO) 9 % (22-44); MEAN CORPUSCULAR HEMOGLOBIN 28.9 pg (27.5-34.5); MONOCYTES % (AUTO) 7 % (2-9); NEUTROPHILS % (AUTO) 84 % (42-75); PLATELET COUNT 325 x10^3/uL (130-400); RED BLOOD COUNT 4.53 x10^6/uL (4.38-5.82); RED CELL DISTRIBUTION WIDTH 13.9 % (9.4-14.8)
[2021-05-26 06:59] LABS: ALBUMIN 2.3 g/dL (3.4-5.0); ANION GAP 8 mmol/L (5-15); CALCIUM 8.1 mg/dL (8.5-10.1); CHLORIDE 110 mmol/L (98-107)
[2021-05-26 07:03] LABS: ALANINE AMINOTRANSFERASE 192 U/L (12-78); ALKALINE PHOSPHATASE 116 U/L (45-117); BILIRUBIN,TOTAL 0.4 mg/dL (0.2-1.0); CREATININE 1.12 mg/dL (0.7-1.3); TOTAL PROTEIN 6.5 g/dL (6.4-8.2)
[2021-05-26 07:36] VITALS: BP 118/71
[2021-05-26] MEDS: AMLODIPINE 10 MG TAB PO SCH (07:40)
[2021-05-26] MEDS: TRIAMTERENE-HCTZ 37.5/25 MG TABLET PO SCH (07:40)
[2021-05-26] MEDS: ZINC SULFATE 220 MG CAPSULE PO SCH (07:40)
[2021-05-26] MEDS: metFORMIN 500 MG TABLET PO SCH ×2 (07:40→20:53)
[2021-05-26] MEDS: DEXAMETHASONE 4 MG TABLET PO SCH ×2 (07:40→16:32)
[2021-05-26] MEDS: ASCORBIC ACID 500 MG TABLET PO SCH ×2 (07:40→20:53)
[2021-05-26] MEDS: INSULIN REGULAR 100 UNITS/ML, 3ML VIAL SQ-INSULIN SCH ×4 (07:40→21:16)
[2021-05-26] MEDS: LOSARTAN 100 MG TAB PO SCH (07:40)
[2021-05-26] MEDS: BENZONATATE 100 MG CAPSULE PO SCH ×3 (07:42→20:54)
[2021-05-26] MEDS: SODIUM CHLORIDE 0.9% 1,000 ML IV SCH (10:15)
[2021-05-26] MEDS: DOXYCYCLINE 100 MG in DEXTROSE 5% 250 ML IV SCH ×2 (10:15→20:53)
[2021-05-26 11:37] VITALS: BP 115/68
[2021-05-26] MEDS: REMDESIVIR 100 MG in SODIUM CHLORIDE 0.9% 250 ML IVPB SCH (14:54)
[2021-05-26] MEDS: ATORVASTATIN 20 MG TABLET PO SCH (20:54)
[2021-05-27 01:01] VITALS: BP 124/71
[2021-05-27] MEDS: SODIUM CHLORIDE 0.9% 1,000 ML IV SCH (03:54)
[2021-05-27 05:16] LABS: BASOPHILS % (AUTO) 0 % (0-1); EOSINOPHILS % (AUTO) 0 % (1-7); LYMPHOCYTES % (AUTO) 8 % (22-44); MEAN CORPUSCULAR HEMOGLOBIN 28.8 pg (27.5-34.5); MEAN PLATELET VOLUME 8.2 fL (7.4-10.4); MONOCYTES % (AUTO) 6 % (2-9); NEUTROPHILS % (AUTO) 85 % (42-75); PLATELET COUNT 361 x10^3/uL (130-400); RED BLOOD COUNT 4.39 x10^6/uL (4.38-5.82); RED CELL DISTRIBUTION WIDTH 13.8 % (9.4-14.8)
[2021-05-27 05:23] LABS: ALANINE AMINOTRANSFERASE 122 U/L (12-78); ALBUMIN 2.2 g/dL (3.4-5.0); ANION GAP 5 mmol/L (5-15); CALCIUM 8.1 mg/dL (8.5-10.1); CHLORIDE 109 mmol/L (98-107); CREATININE 1.11 mg/dL (0.7-1.3)
[2021-05-27 05:25] LABS: ALKALINE PHOSPHATASE 93 U/L (45-117); BILIRUBIN,TOTAL 0.4 mg/dL (0.2-1.0)
[2021-05-27 06:25] VITALS: BP 121/69
[2021-05-27] MEDS: HEPARIN 5,000 UNITS/ML, 1ML SQ SCH (06:33)
[2021-05-27] MEDS: INSULIN REGULAR 100 UNITS/ML, 3ML VIAL SQ-INSULIN SCH ×4 (07:46→20:24)
[2021-05-27] MEDS: DEXAMETHASONE 4 MG TABLET PO SCH (07:47)
[2021-05-27] MEDS: AMLODIPINE 10 MG TAB PO SCH (07:47)
[2021-05-27] MEDS: BENZONATATE 100 MG CAPSULE PO SCH ×3 (07:47→20:21)
[2021-05-27] MEDS: ZINC SULFATE 220 MG CAPSULE PO SCH (07:47)
[2021-05-27] MEDS: ASCORBIC ACID 500 MG TABLET PO SCH ×2 (07:47→20:21)
[2021-05-27] MEDS: LOSARTAN 100 MG TAB PO SCH (07:47)
[2021-05-27] MEDS: metFORMIN 500 MG TABLET PO SCH ×2 (07:47→20:21)
[2021-05-27] MEDS: TRIAMTERENE-HCTZ 37.5/25 MG TABLET PO SCH (07:47)
[2021-05-27] MEDS: DOXYCYCLINE 100 MG in DEXTROSE 5% 250 ML IV SCH (08:57)
[2021-05-27] MEDS ORDERED: OMNIPAQUE 350 MG/ML, 75ML BOTTLE ONE (09:50)
[2021-05-27 12:12] VITALS: BP 119/72
[2021-05-27] MEDS: POTASSIUM CHLORIDE 20 MEQ TAB.ER.PRT PO SCH ×2 (12:58→16:10)
[2021-05-27] MEDS: REMDESIVIR 100 MG in SODIUM CHLORIDE 0.9% 250 ML IVPB SCH (14:19)
[2021-05-27] MEDS: GUAIFENESIN/COD200MG-20MG/10ML LIQUID PO PRN (16:08)
[2021-05-27] MEDS: DEXAMETHASONE 4 MG/ML, 1ML IVPush SCH (16:10)
[2021-05-27] MEDS: FUROSEMIDE 40 MG/4 ML IV SCH (16:10)
[2021-05-27 18:33] VITALS: BP 118/74
[2021-05-27] MEDS: ATORVASTATIN 20 MG TABLET PO SCH (20:21)
[2021-05-27] MEDS: GUAIFENESIN ER 600 MG TABLET PO SCH (20:21)
[2021-05-27] MEDS: ENOXAPARIN 40 MG/0.4 ML SQ SCH (20:25)
[2021-05-28 00:18] VITALS: BP 115/67
[2021-05-28 05:38] LABS: CHLORIDE 106 mmol/L (98-107)
[2021-05-28 05:46] LABS: ALANINE AMINOTRANSFERASE 111 U/L (12-78); ALBUMIN 2.2 g/dL (3.4-5.0); ALKALINE PHOSPHATASE 88 U/L (45-117); ANION GAP 9 mmol/L (5-15); BILIRUBIN,TOTAL 0.5 mg/dL (0.2-1.0); CALCIUM 8.3 mg/dL (8.5-10.1); CREATININE 1.24 mg/dL (0.7-1.3); TOTAL PROTEIN 6.2 g/dL (6.4-8.2)
[2021-05-28 06:38] VITALS: BP 128/66
[2021-05-28] MEDS: INSULIN REGULAR 100 UNITS/ML, 3ML VIAL SQ-INSULIN SCH ×4 (07:38→20:40)
[2021-05-28] MEDS: FUROSEMIDE 40 MG/4 ML IV SCH ×2 (07:38→16:48)
[2021-05-28] MEDS: POTASSIUM CHLORIDE 20 MEQ TAB.ER.PRT PO SCH ×3 (08:27→16:47)
[2021-05-28] MEDS: ZINC SULFATE 220 MG CAPSULE PO SCH (08:27)
[2021-05-28] MEDS: AMLODIPINE 10 MG TAB PO SCH (08:27)
[2021-05-28] MEDS: BENZONATATE 100 MG CAPSULE PO SCH ×3 (08:27→20:39)
[2021-05-28] MEDS: LOSARTAN 100 MG TAB PO SCH (08:27)
[2021-05-28] MEDS: ASCORBIC ACID 500 MG TABLET PO SCH ×2 (08:27→20:40)
[2021-05-28] MEDS: metFORMIN 500 MG TABLET PO SCH ×2 (08:27→20:40)
[2021-05-28] MEDS: GUAIFENESIN ER 600 MG TABLET PO SCH ×2 (08:27→20:40)
[2021-05-28] MEDS: DEXAMETHASONE 4 MG/ML, 1ML IVPush SCH (08:28)
[2021-05-28] MEDS: ENOXAPARIN 40 MG/0.4 ML SQ SCH ×2 (08:29→20:40)
[2021-05-28 13:15] VITALS: BP 128/75
[2021-05-28] MEDS: REMDESIVIR 100 MG in SODIUM CHLORIDE 0.9% 250 ML IVPB SCH (13:56)
[2021-05-28] MEDS: GUAIFENESIN/COD200MG-20MG/10ML LIQUID PO PRN (18:16)
[2021-05-28 18:33] VITALS: BP 148/76
[2021-05-28] MEDS: ATORVASTATIN 20 MG TABLET PO SCH (20:40)
[2021-05-29 00:13] VITALS: BP 105/59
[2021-05-29 05:23] LABS: ANION GAP 7 mmol/L (5-15); CALCIUM 8.5 mg/dL (8.5-10.1); CHLORIDE 105 mmol/L (98-107)
[2021-05-29 05:24] LABS: CREATININE 1.26 mg/dL (0.7-1.3)
[2021-05-29] MEDS: INSULIN REGULAR 100 UNITS/ML, 3ML VIAL SQ-INSULIN SCH ×3 (07:00→16:35)
[2021-05-29 07:18] VITALS: BP 130/78
[2021-05-29] MEDS: ENOXAPARIN 40 MG/0.4 ML SQ SCH (08:00)
[2021-05-29] MEDS: AMLODIPINE 10 MG TAB PO SCH (08:34)
[2021-05-29] MEDS: ZINC SULFATE 220 MG CAPSULE PO SCH (08:34)
[2021-05-29] MEDS: metFORMIN 500 MG TABLET PO SCH (08:34)
[2021-05-29] MEDS: POTASSIUM CHLORIDE 20 MEQ TAB.ER.PRT PO SCH ×3 (08:34→16:33)
[2021-05-29] MEDS: ASCORBIC ACID 500 MG TABLET PO SCH (08:34)
[2021-05-29] MEDS: BENZONATATE 100 MG CAPSULE PO SCH ×2 (08:34→16:33)
[2021-05-29] MEDS: DEXAMETHASONE 4 MG/ML, 1ML IVPush SCH (08:35)
[2021-05-29] MEDS: LOSARTAN 100 MG TAB PO SCH (08:35)
[2021-05-29] MEDS: FUROSEMIDE 40 MG/4 ML IV SCH ×2 (08:35→16:35)
[2021-05-29] MEDS: GUAIFENESIN ER 600 MG TABLET PO SCH (08:35)
[2021-05-29] MEDS ORDERED: BENZ-17 PO (13:02)
[2021-05-29] MEDS ORDERED: GUAI600T31 PO (13:02)
[2021-05-29] MEDS ORDERED: ASCO500T9 PO (13:02)
[2021-05-29] MEDS ORDERED: CHOL10003 PO (13:02)
[2021-05-29] MEDS ORDERED: DEXA6TAB6 PO (13:02)
== END 2021-05-29 18:19 | disposition home or self-care (01) | DRG 177 ==
LOC: ED 07:50 → EDIP 09:41 → 3N 11:45
PROVIDERS: ADMIT Internal Medicine; ATTEND Internal Medicine
PROC: XW033E5 Introduction of Remdesivir Anti-infective into Peripheral Vein, Percutaneous Approach, New Technology Group 5 (ICD-10-PCS; principal; 2021-05-24)
DX: U07.1 COVID-19 (principal); J12.82 Pneumonia due to coronavirus disease 2019; J96.01 Acute respiratory failure with hypoxia; N17.9 Acute kidney failure, unspecified; E11.9 Type 2 diabetes mellitus without complications; E78.5 Hyperlipidemia, unspecified; E87.6 Hypokalemia; I10 Essential (primary) hypertension; M10.9 Gout, unspecified; Z86.16 Personal history of COVID-19; Z90.49 Acquired absence of other specified parts of digestive tract; Z79.899 Other long term (current) drug therapy
CPT/HCPCS: 36415; 71045; 71275; 80048; 80053; 82962; 83605; 83735; 84100; 84145; 85025; 85379; 87040; 93005; 96374; 96375; 99285; G0378; J1100; J1644; J1650; J1940; J7060; Q9967; U0005; J7030; J7050; U0003